=== PATIENT | male | born 1960 | race African-American/Black ===

== ENCOUNTER → 2016-12-20 | Outpatient (CLI) | payer OTHER ==
--- NOTE | 2016-12-20 13:35 | RAD ---
PET oncologic study 12/20/2016 at 0931 hours Technique: Blood glucose prior to injection: 110 mg/dL Scan region: Skull base to mid thigh Radiopharmaceutical: F-18 FDG 14.2 mCi IV Calibration time: Start 0745hours and finished at 0925 hours Administration time: 0752 hours on 12/20/2016 Injection site: Right antecubital Postinjection imaging delay: Scan time 0851 hours on 12/20/2016 Clinical information: Diagnostic; history of pulmonary nodule. Comparison: None available. Attenuation correction performed utilizing a noncontrast, nondiagnostic CT examination. Findings: There is a 13 by 8mm right intraparotid lymph node on (series 3, image 52) (Max SUV 5.66). Physiologic radiotracer uptake is identified in the muscles of mastication. There is radiotracer uptake in a lymph node deep to the left parotid gland measuring 22 x 18 mm (series 3, image 61) max SUV 9.23. A left level IIb lymph node measures 18 x 10 mm (series 3, image 66) with max SUV 8.02. There is a 6 mm solid noncalcified pulmonary nodule in the left upper lobe (series 3, image 129) which is too small to be characterized by PET. There is a 11 mm x 9 mm solid noncalcified pulmonary nodule in the posterior inferior left lower lobe (Max SUV 1.87). Left hilar lymph node measures 15 mm by short axis (series 3, image 165) with max SUV 6.22. A right paratracheal lymph node measures 14 mm by short axis (series 3, image 131) with max SUV 7.7. Nonenlarged axillary lymph nodes are present with fatty vinicio. There is a single left axillary lymph node which measures 9 mm by short axis which has a more rounded morphology (Max SUV 2.95). There is a prevascular lymph node with max SUV 4.2. There are no pleural effusions or infiltrates identified. Heart size is borderline enlarged. Thoracic aorta is normal in caliber. Thyroid gland is normal. Median sternotomy changes are present. Liver uptake is approximately SUV 4.88. There is a 14 mm hypodense lesion in the left hepatic lobe (series 3, image 200). Spleen, bilateral adrenal glands, and gallbladder are normal in appearance. There is nonspecific FDG uptake in the region of the third portion of the duodenum and head of the pancreas with max SUV 7.93. There are no enlarged abdominal or pelvic lymph nodes. There is a cystic lesion in the superior pole the right kidney measuring 3.1 cm. A nonobstructing 6 mm calculus is identified in the interpolar region of the right kidney. There is no hydronephrosis. There is a nodule at the tip of the appendix measuring 10.4 mm without significant FDG avidity. An adjacent lymph node measures 7 mm (series 3, image 306). Small bowel and large bowel are nondilated with physiologic uptake. Physiologic uptake is identified in the bladder. There is no free fluid or free intraperitoneal air. No suspicious osseous lesions are identified. Impression: 1. There is abnormal FDG uptake within enlarged bilateral intraparotid and left level II/IIb lymph nodes. Findings are suspicious for metastasis of unknown primary. 2. 11 x 9 mm solid nodule slight pulmonary nodule in the left lower lobe does not demonstrate FDG of ADD. However, this may still represent a primary non-FDG avid malignancy. Left hilar and right paratracheal lymphadenopathy with FDG activity are suspicious for metastasis. There is an additional 6 mm noncalcified pulmonary nodule in the left upper lobe. Findings may alternatively represent pulmonary metastasis. 3. There is increased FDG evaluated the in the third portion of the duodenum and head of the pancreas, which is nonspecific. However, recommend abdominal MRI for further characterization. There is a hypodense lesion in the left hepatic lobe which he be further catheterized by MRI. 4. There is a nodule at the tip of the appendix measuring 10.4 mm without significant FDG avidity. This may represent sequela of tip appendicitis versus a small mucocele versus carcinoid versus folding of the appendiceal tip. Further characterization with a diagnostic CT is recommended.
== END | disposition home or self-care (01) ==
LOC: PETSC 09:47
DX: R91.1 Solitary pulmonary nodule (principal)
CPT/HCPCS: 78815; A9552

== ENCOUNTER → 2017-01-04 | Outpatient (CLI) | payer OTHER ==
[~2017-01-04] MED LIST: GADOBUTROL 10 MMOL/10 ML VIAL IV ONE
--- NOTE | 2017-01-04 11:58 | [facility] ---
MRI of the abdomen and pelvis to include a MRCP without and with contrast 01/04/2017 CLINICAL HISTORY: Abnormal activity seen within the duodenum/pancreas on a recent PET/CT scan. Lung mass. Technique: Unenhanced T2-weighted axial and coronal and in and out of phase T1-weighted axial images of the abdomen were obtained. Thin section volumetric T2 weighted fat saturated coronal images of the abdomen were obtained. Multiplanar 3-D MIP reconstructed images of the biliary system were obtained for an MRCP. Unenhanced T1-weighted axial and coronal and inversion recovery coronal images of the pelvis were obtained. After the intravenous administration of 20 cc of Gadavist, dynamic enhanced fat saturated T1 weighted axial images of the abdomen were obtained. Fat-saturated T1-weighted axial and coronal images through the pelvis were obtained. FINDINGS: Comparison is made to patient's PET/CT scan dated 12/20/2016. This was performed at [facility]. Multiple hepatic cysts are seen scattered throughout both lobes of the liver. These measure 3 mm 1.7 cm in size. One of these corresponds to the 1.4 cm hypodense lesion seen within the left lower of the liver on the patient's recent PET CT scan. Several rounded high signal intensity lesions are seen on the T2-weighted images scattered throughout both kidneys. These measure 3 mm to 3.8 cm in size. They likely represent cysts. The spleen, adrenal glands and pancreas are within normal limits. The area of increased activity seen in the region of the third portion of the duodenum/head of the pancreas on the patient's PET/CT scan is felt to be artifactual. No abnormality is seen in these regions on the patient's MRI of the abdomen. The abdominal aorta tapers normally. The gallbladder is well-distended. No free fluid is seen within the abdomen. MRCP images demonstrate the gallbladder to be well-distended. No filling defect is seen. The common hepatic duct and left and right hepatic ducts and their branches and the common bile duct are normal in caliber. No filling defect is seen. No abnormal soft tissue mass is seen within the pelvis. No pelvic or inguinal lymphadenopathy is seen. The appendix is partially visualized and is within normal limits. No area of abnormal contrast enhancement is seen. The marrow signal of the visualized bony structures is within normal limits. Degenerative changes are seen involving the lower thoracic and throughout the lumbar spine and both hips. IMPRESSION: 1. Multiple cysts are seen scattered throughout both lobes of the liver. The 1.4 cm hypodense lesion seen within the left lobe of the liver on the patient's recent PET/CT represents a hepatic cyst. 2. No abnormality is seen involving the head of the pancreas/third portion of the duodenum as outlined above. 3. Negative MRI of the pelvis. Electronically signed by: Rafat Salgado MD (01/04/2017 11:55 AM) [id number]
== END | disposition home or self-care (01) ==
LOC: KCIC MRI 07:47
PROVIDERS: ATTEND Internal Medicine
DX: R94.8 Abnormal results of function studies of other organs and systems (principal)
CPT/HCPCS: 72197; 74183; A9585